=== PATIENT | male | born 1975 | race Caucasian/White ===

== ENCOUNTER 2017-05-01 07:59 | Outpatient (RCR) | payer BC | END 2017-06-06 13:30 | disposition home or self-care (01) | LOC: PT 07:59 | DX: M77.01 Medial epicondylitis, right elbow (principal); M25.812 Other specified joint disorders, left shoulder ==

== ENCOUNTER → 2017-05-05 | Outpatient (REF) | LOC: LAB 13:45 | DX: E29.1 Testicular hypofunction (principal); Z23 Encounter for immunization ==

== ENCOUNTER → 2018-02-20 | Day surgery (SDC) | payer BC | LOC: LAB 07:08 → MSO 07:08 | DX: Z12.11 Encounter for screening for malignant neoplasm of colon (principal); Z80.0 Family history of malignant neoplasm of digestive organs; K64.4 Residual hemorrhoidal skin tags; I10 Essential (primary) hypertension; Z87.891 Personal history of nicotine dependence; G47.33 Obstructive sleep apnea (adult) (pediatric); K21.9 Gastro-esophageal reflux disease without esophagitis; Z11.1 Encounter for screening for respiratory tuberculosis | CPT/HCPCS: 00812; J2704; J7120 ==

== ENCOUNTER → 2021-01-19 | Outpatient (CLI) | payer BC ==
[2021-01-19 16:49] LABS: HEMATOCRIT 57.8 % (42.0-52.0); HEMOGLOBIN 19.4 g/dL (13.5-18.0)
== END ==
LOC: LAB 16:11
PROVIDERS: Family Medicine
DX: D45 Polycythemia vera (principal)

== ENCOUNTER → 2021-03-03 | Outpatient (CLI) | payer BC ==
[2021-03-03 12:41] LABS: HEMATOCRIT 59.6 % (42.0-52.0); HEMOGLOBIN 19.6 g/dL (13.5-18.0)
== END ==
LOC: LAB 12:04
PROVIDERS: Family Medicine
DX: D45 Polycythemia vera (principal)

== ENCOUNTER → 2021-03-17 | Outpatient (CLI) | payer BC ==
[2021-03-17 13:40] LABS: HEMATOCRIT 54.2 % (42.0-52.0)
== END ==
LOC: LAB 13:24
PROVIDERS: Family Medicine
DX: D45 Polycythemia vera (principal)

== ENCOUNTER → 2021-04-14 | Outpatient (CLI) | payer BC ==
[2021-04-14 13:36] LABS: HEMATOCRIT 50.7 % (42.0-52.0); HEMOGLOBIN 17.3 g/dL (13.5-18.0)
== END ==
LOC: LAB 13:21
PROVIDERS: Family Medicine
DX: D45 Polycythemia vera (principal)

== ENCOUNTER → 2021-11-01 | Outpatient (CLI) | payer BC | LOC: LAB 10:45 | DX: Z20.822 Contact with and (suspected) exposure to COVID-19 (principal) ==

== ENCOUNTER → 2022-03-25 | Outpatient (CLI) | payer BC ==
[2022-03-25 12:07] LABS: BASO # 0.04 K/mm3 (0.02-0.10); EOS # 0.13 K/mm3 (0.04-0.40); HEMATOCRIT 52.2 % (42.0-52.0); HEMOGLOBIN 16.3 g/dL (13.5-18.0); LYMPH# 2.08 K/mm3 (1.50-4.00); MEAN CELL VOLUME 75 fl (78-100); MEAN CORPUSCULAR HEMOGLOBIN 24 pg (27-31); MEAN CORPUSCULAR HGB CONC 31 g/dL (33-37); MEAN PLATELET VOLUME 10.5 fl (7.4-10.4); NEU # 3.54 K/mm3 (1.40-6.50); PLATELET COUNT 333 K/mm3 (130-400); RED BLOOD COUNT 6.95 M/mm3 (4.20-5.60); RED CELL DISTRIBUTION WIDTH 18.1 % (11.5-14.5); WHITE BLOOD COUNT 6.5 K/mm3 (4.8-10.8)
[2022-03-25 12:14] LABS: ALBUMIN 4.6 g/dL (3.5-5.0); POTASSIUM 3.8 mmol/L (3.5-5.1)
[2022-03-25 12:15] LABS: CALCIUM 9.7 mg/dL (8.3-10.5)
[2022-03-25 12:18] LABS: TOTAL BILIRUBIN 0.8 mg/dL (0.2-1.2)
== END ==
LOC: LAB 11:46
PROVIDERS: Family Medicine
DX: Z00.00 Encounter for general adult medical examination without abnormal findings (principal); E78.5 Hyperlipidemia, unspecified; F90.9 Attention-deficit hyperactivity disorder, unspecified type; I10 Essential (primary) hypertension; E29.1 Testicular hypofunction; E78.2 Mixed hyperlipidemia; G47.33 Obstructive sleep apnea (adult) (pediatric); D45 Polycythemia vera

== ENCOUNTER → 2024-05-30 | Outpatient (REF) | payer BC | LOC: LAB 17:10 → EDSTATUS 17:35 | DX: Z00.00 Encounter for general adult medical examination without abnormal findings (principal); Z13.220 Encounter for screening for lipoid disorders; E29.1 Testicular hypofunction ==